=== PATIENT | female | born 1955 | race Caucasian/White ===

== ENCOUNTER 2016-08-12 08:13 | Outpatient (CLI) | payer BC | END 2016-08-12 08:14 | disposition home or self-care (01) | DX: R74.8 Abnormal levels of other serum enzymes (principal) ==

== ENCOUNTER 2016-08-12 08:15 | Outpatient (CLI) | payer BC | END 2016-08-12 08:16 | disposition home or self-care (01) | DX: M81.0 Age-related osteoporosis without current pathological fracture (principal) ==

== ENCOUNTER 2017-11-11 15:45 | Outpatient (CLI) | payer BC ==
--- NOTE | 2017-11-12 11:53 | Mammography Report ---
DIGITAL SCREENING MAMMOGRAM: 11/11/2017 CLINICAL INDICATION: A 62-year-old with history of benign excisional biopsy for screening. COMPARISON: 04/2016, 12/2014, 11/2013, 08/2012, 03/2011, 03/2010. TECHNIQUE: Routine CC and MLO projections were obtained of the breasts. FINDINGS: The breasts demonstrate scattered fibroglandular densities bilaterally. Postoperative changes in the left upper outer central breast are stable. No suspicious masses, clustered microcalcifications, or regions of architectural distortion are identified. IMPRESSION: BENIGN FINDINGS. RECOMMENDATION: Routine annual screening unless otherwise clinically indicated. BIRADS CATEGORY 2 - BENIGN FINDINGS. STANDARD QUALIFYING STATEMENTS: 1. This examination was reviewed with the aid of Computer-Aided Detection (CAD). 2. A negative or benign imaging report should not delay biopsy if clinically suspicious findings are present. Consider surgical consultation if warranted. More than 5% of cancers are not identified by imaging. 3. Dense breasts may obscure an underlying neoplasm. TD: 11/12/2017 11:53
== END 2017-11-11 15:46 | disposition home or self-care (01) ==
LOC: DI.N 15:45
PROVIDERS: ATTEND Physician Assistant Medical
DX: Z12.31 Encounter for screening mammogram for malignant neoplasm of breast (principal)
CPT/HCPCS: 77067

== ENCOUNTER 2018-02-17 19:50 | Emergency (ER) | payer BC | END 2018-02-17 20:18 | disposition left against medical advice (07) | LOC: ED 19:50 | DX: Z53.21 Procedure and treatment not carried out due to patient leaving prior to being seen by health care provider (principal) ==

== ENCOUNTER 2018-02-18 02:22 | Emergency (ER) | payer BC ==
[2018-02-18 02:32] VITALS: BP 146/67
[2018-02-18 03:05] LABS: BASOPHILS % (AUTO) 0.2 %; EOSINOPHILS # (AUTO) 0.2 10^3/uL (0.0-0.7); HGB - HEMOGLOBIN 13.5 g/dL (12.0-16.0); LYMPHOCYTES # (AUTO) 0.3 10^3/uL (1.5-3.5); LYMPHOCYTES % (AUTO) 4.7 %; MEAN CORPUSCULAR HEMOGLOBIN 31.6 pg (27.0-31.0); MEAN CORPUSCULAR HGB CONC 33.8 g/dL (32.0-36.0); MEAN CORPUSCULAR VOLUME 93.5 fL (81.0-99.0); MEAN PLATELET VOLUME 7.8 fL (7.9-10.8); MONOCYTES # (AUTO) 0.5 10^3/uL (0.0-1.0); MONOCYTES % (AUTO) 6.6 %; NEUTROPHILS # (AUTO) 5.9 10^3/uL (1.5-6.6); NEUTROPHILS % (AUTO) 85.5 %; PLT - PLATELET COUNT 171 10^3/uL (130-450); RED BLOOD COUNT 4.28 10^6/uL (4.20-5.40); RED CELL DISTRIBUTION WIDTH 14.4 % (12.0-15.0); WHITE BLOOD COUNT 6.9 x10^3/uL (4.8-10.8)
[2018-02-18 03:09] LABS: INR 1.1 (0.8-1.2); PT - PROTHROMBIN TIME 11.9 secs (9.9-12.6)
[2018-02-18 03:14] LABS: ALBUMIN 4.7 g/dL (3.2-5.5); ALBUMIN/GLOBULIN RATIO 1.8 (1.0-2.2); BILIRUBIN,TOTAL 0.6 mg/dL (0.2-1.0); CALCIUM 9.5 mg/dL (8.5-10.3); TOTAL PROTEIN 7.3 g/dL (6.7-8.2)
[2018-02-18] MEDS ORDERED: predniSONE 20 MG TABLET PO STA (03:21)
[2018-02-18] MEDS ORDERED: hydrOXYzine PAMOATE 25 MG CAPSULE PO STA (03:21)
--- NOTE | 2018-02-18 03:34 | ED Physician Documentation ---
PD HPI SKIN - Stated complaint Stated Complaint: JAZMYNE LEG PAIN,JAZMYNE ARM RASH - Chief complaint Chief Complaint: Ext Problem - History obtained from History obtained from: Patient - History of Present Illness Timing - onset: How many days ago (2) Timing - details: Gradual onset, Still present Location: RUE, LUE, RLE, LLE Quality / character: Itchy, Painful Associated symptoms: No: Fever Contributing factors: No: Exposed to medication, Exposed to food, Exposed to soap / lotion Similar symptoms before: Has not had sx before Recently seen: Not recently seen - Additional information Additional information: Patient is a 62 year old female with a history of sjogren's syndrome who is presenting to the emergency department for redness of her legs and her arms. patient states that it was just on her legs yesterday and today it spread to her arms. Patient came earlier in the day but the wait was too long so she left. Patient states it is somewhat puritic and somewhat painful Review of Systems Ten Systems: 10 systems reviewed and negative Skin: reports: Rash PD PAST MEDICAL HISTORY - Past Medical History Past Medical History: Yes Cardiovascular: None Respiratory: None Endocrine/Autoimmune: HyPOthyroidism GI: None : None Psych: None Musculoskeletal: None Derm: None - Past Surgical History Past Surgical History: Yes General: Cholecystectomy, Appendectomy - Present Medications Home Medications: Ambulatory Orders Medication Instructions Recorded Confirmed Cholecalciferol (Vitamin D3) 1 tab PO DAILY 09/20/14 09/21/14 [Vitamin D-3] Estrogen,Con/M-Progest Acet 1 tab PO DAILY 09/20/14 09/21/14 [Prempro 0.3 mg-1.5 mg Tablet] Hydroxychloroquine [Plaquenil] 400 mg PO DAILY 09/20/14 09/21/14 Levothyroxine [Synthroid] 100 mcg PO DAILY 09/20/14 09/21/14 Aspirin [Aspir 81] 81 mg ORAL DAILY 09/21/14 09/21/14 Atenolol 50 mg ORAL DAILY 09/21/14 09/21/14 Pilocarpine HCl 5 mg ORAL TID 09/21/14 09/21/14 hydrOXYzine pamoate [Hydroxyzine 25 mg PO Q6HR PRN #20 capsule 02/18/18 Pamoate] predniSONE [Prednisone] 40 mg PO DAILY 5 Days tablet 02/18/18 - Allergies Allergies/Adverse Reactions: Allergies Allergy/AdvReac Type Severity Reaction Status Date / Time Sulfa (Sulfonamide Allergy Hives Verified 09/20/14 15:23 Antibiotics) - Social History Does the pt smoke?: No Smoking Status: Never smoker Does the pt drink ETOH?: No Does the pt have substance abuse?: No - Immunizations Immunizations are current?: Yes - POLST Patient has POLST: No PD ED PE NORMAL - Vitals Vital signs reviewed: Yes - General General: Alert and oriented X 3, No acute distress - HEENT HEENT: Atraumatic - Cardiac Cardiac: RRR - Respiratory Respiratory: No respiratory distress PD ED PE EXPANDED - Derm Derm: Rash (erythematous rash seems to be worse on exposed areas, no definitive borders ) SKin visual: 1 - rash 2 - rash 3 - rash 4 - rash 5 - rash Results - Vitals Vitals: Vital Signs - 24 hr 02/18/18 02:25 Temperature 36.6 C Heart Rate 74 Respiratory 16 Rate Blood Pressure 146/67 H O2 Saturation 100 Oxygen O2 Source Room air - Labs Labs: Laboratory Tests 02/18/18 02/18/18 02/18/18 02:55 02:55 02:55 WBC 6.9 RBC 4.28 Hgb 13.5 Hct 40.0 MCV 93.5 MCH 31.6 H MCHC 33.8 RDW 14.4 Plt Count 171 MPV 7.8 L Neut # (Auto) 5.9 Lymph # (Auto) 0.3 L [place] # (Auto) 0.5 Eos # (Auto) 0.2 Baso # (Auto) 0.0 Absolute Nucleated RBC 0.01 Nucleated RBC % 0.1 PT 11.9 INR 1.1 APTT 24.6 L Sodium 138 Potassium 4.0 Chloride 104 Carbon Dioxide 27 Anion Gap 7.0 BUN 16 Creatinine 1.0 Estimated GFR (MDRD) 56 L Glucose 109 H Calcium 9.5 Total Bilirubin 0.6 AST 28 ALT 26 Alkaline Phosphatase 77 Total Protein 7.3 Albumin 4.7 Globulin 2.6 Albumin/Globulin Ratio 1.8 Lipase 37 PD MEDICAL DECISION MAKING - ED course Complexity details: reviewed old records, reviewed results, re-evaluated patient , considered differential, d/w patient, d/w family ED course: Priscilla was seen and examined at bedside. patient was well appearing and in no distress. labs were drawn and within normal limits. Patient's symptoms were likely secondary to vasculitis. Patient was treated with hydroxyzine and prednisone. Patient was instructed to call her doctor tomorrow. Patient and felt comfortable with the plan and were stable for discharge with outpatient follow up. - Sepsis Event Vital Signs: Vital Signs - 24 hr 02/18/18 02:25 Temperature 36.6 C Heart Rate 74 Respiratory 16 Rate Blood Pressure 146/67 H O2 Saturation 100 Oxygen O2 Source Room air Departure - Departure Disposition: Home, Self Care Clinical Impression: Vasculitis Condition: Good Instructions: Sjgren Syndrome Follow-Up: Diann Worrell PA-C [Primary Care Provider] - Tomorrow Prescriptions: hydrOXYzine pamoate [Hydroxyzine Pamoate] 25 mg PO Q6HR PRN #20 capsule PRN Reason: Itching predniSONE [Prednisone] 40 mg PO DAILY 5 Days tablet Comments: Your diagnostics today were within normal limits. your symptoms were likely secondary to vasculitis which is likely due to the sjogren's syndrome. 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 you may return to the emergency department at any time for new, worsening or uncontrollable symptoms.
== END 2018-02-18 03:41 | disposition home or self-care (01) ==
LOC: ED 02:22
DX: I77.6 Arteritis, unspecified (principal); M35.00 Sjogren syndrome, unspecified
CPT/HCPCS: 36415; 80053; 83690; 85025; 85610; 85730; 99283; A9270; J7512

== ENCOUNTER 2018-09-25 07:55 | Outpatient (CLI) | payer BC ==
--- NOTE | 2018-09-25 10:17 | Ultrasound Report ---
Reason: CALF PAIN,BILATERAL Procedure Date: 09/25/2018 Accession Number: [id number] / [id number] Procedure: US - Duplex Ext Veins Bilateral CPT Code: FULL RESULT: EXAM: BILATERAL LOWER EXTREMITY VENOUS ULTRASOUND EXAM DATE: 09/25/2018 09:29 AM. CLINICAL HISTORY: Calf pain, bilateral. COMPARISON: None. TECHNIQUE: Real-time sonographic vascular imaging was performed by the tag and label cutter through the lower extremities utilizing both color-flow and Doppler spectral analysis. Multiple farm loan representative static images were saved for review. FINDINGS: Right: Common Femoral Vein (CFV): Normal. CFV-GSV Junction: Normal. Profunda Femoral Vein (PFV): Normal. Femoral Vein (FV) Prox: Normal. Femoral Vein (FV) Mid: Normal. Femoral Vein (FV) Dist: Normal. Popliteal Vein: Normal. Posterior Tibial Veins: Normal. Peroneal Veins: Normal. Left: Common Femoral Vein (CFV): Normal. CFV-GSV Junction: Normal. Profunda Femoral Vein (PFV): Normal. Femoral Vein (FV) Prox: Normal. Femoral Vein (FV) Mid: Normal. Femoral Vein (FV) Dist: Normal. Popliteal Vein: Normal. Posterior Tibial Veins: Normal. Peroneal Veins: Normal. Other: Please note that sensitivity of the examination is mildly limited by body habitus. IMPRESSION: No evidence for deep venous thrombosis bilaterally. RADIA The call report notification system was initiated by Dr. Renaldo Guevara at 10:15 AM on 09/25/2018. CRITICAL RESULT: The findings were discussed with Dr. Palmer on 09/25/2018 at 10:28 AM.
== END 2018-09-25 07:56 | disposition home or self-care (01) ==
LOC: DI 07:55
PROVIDERS: ATTEND Physician Assistant Medical
DX: M79.662 Pain in left lower leg (principal); M79.661 Pain in right lower leg
CPT/HCPCS: 93970

== ENCOUNTER 2018-12-18 15:31 | Outpatient (CLI) | payer BC ==
--- NOTE | 2018-12-18 16:48 | Mammography Report ---
Reason: SCREENING MAMMO Procedure Date: 12/18/2018 Accession Number: [id number] / [id number] Procedure: MGN - Screening Mammo Dig Bilat CPT Code: FULL RESULT: EXAM: Screening Mammo Dig Bilat DATE: 12/18/2018 4:01 PM CLINICAL HISTORY: Routine screening. No reported personal history or family history of breast cancer. History of benign left breast biopsy. TECHNIQUE: (B) - Bilateral CC and MLO views were obtained. COMPARISON: 11/11/2017 through 11/03/2013 PARENCHYMAL PATTERN: (D) - The breasts demonstrate heterogeneously dense fibroglandular parenchyma bilaterally. FINDINGS: Bilateral breasts: There are no suspicious masses, calcifications, or areas of distortion. Stable excisional biopsy changes upper outer left breast. IMPRESSION: Benign findings. BI-RADS category 2. RECOMMENDATION: (ANNUAL) - Recommend routine annual screening mammography. BI-RADS CATEGORY: (2) - Benign Findings. STANDARD QUALIFYING STATEMENTS: 1. This examination was not reviewed with the aid of Computer-Aided Detection (CAD). 2. A negative or benign imaging report should not preclude biopsy if clinically suspicious findings are present. 3. Dense breasts may obscure an underlying neoplasm. 4. This examination was reviewed without the aid of 3D breast imaging (tomosynthesis).
== END 2018-12-18 15:32 | disposition home or self-care (01) ==
LOC: DI.N 15:31
DX: Z12.31 Encounter for screening mammogram for malignant neoplasm of breast (principal)
CPT/HCPCS: 77067

== ENCOUNTER 2019-01-29 16:24 | Outpatient (CLI) | payer BC ==
--- NOTE | 2019-02-01 08:53 | XRAY Report ---
Reason: PAIN AND EDEMA LEFT FOOT X MONTHS Procedure Date: 01/29/2019 Accession Number: [id number] / [id number] Procedure: XR - Foot 3 View LT CPT Code: FULL RESULT: EXAM: LEFT FOOT RADIOGRAPHY EXAM DATE: 01/29/2019 04:43 PM. CLINICAL HISTORY: PAIN AND EDEMA LEFT FOOT X MONTHS. COMPARISON: None. TECHNIQUE: 3 views. FINDINGS: Bones: Achilles tendon and plantar heel spurs. No fractures or bone lesions. Joints: First MTP joint osteophytes, joint space narrowing, subchondral sclerosis. Soft Tissues: Soft tissue swelling. IMPRESSION: 1. First MTP DJD. 2. Heel spurs. RADIA
== END 2019-01-29 16:25 | disposition home or self-care (01) ==
LOC: DI 16:24
PROVIDERS: ATTEND Podiatrist
DX: M19.072 Primary osteoarthritis, left ankle and foot (principal); M77.32 Calcaneal spur, left foot

== ENCOUNTER 2019-04-06 08:00 | Outpatient (CLI) | payer BC ==
[2019-04-06 18:40] LABS: BILIRUBIN,URINE NEGATIVE (NEGATIVE); GLUCOSE, URINE (UA) NEGATIVE (NEGATIVE); KETONES,URINE (UA) NEGATIVE (NEGATIVE); LEUKOCYTE ESTERASE, URINE NEGATIVE (NEGATIVE); NITRITE,URINE NEGATIVE (NEGATIVE); OCCULT BLOOD,URINE NEGATIVE (NEGATIVE); PROTEIN,URINE NEGATIVE (NEGATIVE); UROBILINOGEN,URINE 0.2 (NORMAL) E.U./dL (NORMAL)
[2019-04-06 18:41] LABS: CLARITY,URINE CLEAR (CLEAR)
== END 2019-04-06 23:59 | disposition home or self-care (01) ==
LOC: LAB.WCP 08:00
PROVIDERS: ATTEND Physician Assistant Medical
DX: R82.998 Other abnormal findings in urine (principal)
CPT/HCPCS: 81001; 81003; 87086

== ENCOUNTER 2019-10-21 08:00 | Outpatient (CLI) | payer BC | END 2019-10-21 23:59 | disposition home or self-care (01) | LOC: LAB.R 08:00 | PROVIDERS: ATTEND Physician Assistant Medical | DX: R30.0 Dysuria (principal) | CPT/HCPCS: 87086 ==

== ENCOUNTER 2020-01-19 10:17 | Outpatient (CLI) | payer BC ==
--- NOTE | 2020-01-20 08:13 | Mammography Report ---
BILATERAL DIGITAL SCREENING MAMMOGRAM 3D/2D: 01/19/2020 CLINICAL: Routine screening. Comparison is made to exams dated: 12/18/2018 mammogram, 11/11/2017 mammogram, and 04/09/2016 mammogram - [facility]. There are scattered fibroglandular elements in both breasts. There are benign post operative findings in the left breast. No significant masses, calcifications, or other findings are seen in either breast. There has been no significant interval change. IMPRESSION: There is no mammographic evidence of malignancy. A 1 year screening mammogram is recommended. This exam was interpreted at Station ID: [id number]. NOTE: For mammograms, a report in lay terms will be sent to the patient. Approximately 15% of breast malignancies will not be visualized mammographically. In the management of a palpable breast mass, a negative mammogram must not discourage biopsy of a clinically suspicious lesion. Electronically Signed By: Surendra Vega M.D. aty/penrad:01/19/2020 12:06:41 ACR BI-RADS Category 2: Benign Finding(s) 3342F PARENCHYMAL PATTERN: (A) - The breast(s) demonstrate(s) scattered fibroglandular densities. BI-RADS CATEGORY: (2) - 2 RECOMMENDATION: (ANNUAL) - Recommend routine annual screening mammography. [id number] 1 year screening LATERALITY: (B)
== END 2020-01-19 10:18 | disposition home or self-care (01) ==
LOC: DI 10:17
DX: Z12.31 Encounter for screening mammogram for malignant neoplasm of breast (principal)
CPT/HCPCS: 77063; 77067

== ENCOUNTER 2020-01-19 10:18 | Outpatient (CLI) | payer BC ==
--- NOTE | 2020-01-19 11:49 | DEXA Report ---
Reason: POST MENOPAUSAL Procedure Date: 01/19/2020 Accession Number: [id number] / [id number] Procedure: DEX - Dexa Spine and/or Hip CPT Code: Final Report FULL RESULT: PROCEDURE: Dexa Spine and/or Hip INDICATIONS: POST MENOPAUSAL TECHNIQUE: Dual energy x-ray absorptiometry (DXA) was performed on a [employer] System. Regions measured are the AP Spine, femoral neck, and if needed forearm. COMPARISON: None. FINDINGS: Lumbar Spine: Bone Mineral Density 0.881 g/cm/cm,T score -2.5, Left Femoral Neck: Bone Mineral Density 0.694 g/cm/cm, T score -2.5, (T score greater or equal to -1.0: NORMAL) (T score from -1.1 to -2.4: OSTEOPENIA) (T score less than or equal to -2.5 to: OSTEOPOROSIS) Impression: Osteoporosis. Patients with diagnosis of osteoporosis or osteopenia should have regular bone mineral density assessment. For those eligible for Medicare, routine testing is allowed once every 2 years. Testing frequency can be increased for patients who have rapidly progressing disease or for those who are receiving medical therapy to restore bone mass. Reviewed by: Wilian Xie MD on 01/19/2020 11:48 AM PDT Approved by: Wilian Xie MD on 01/19/2020 11:48 AM PDT Station ID: [id number]
== END 2020-01-19 10:19 | disposition home or self-care (01) ==
LOC: DI 10:18
PROVIDERS: ATTEND Physician Assistant Medical
DX: M81.8 Other osteoporosis without current pathological fracture (principal)
CPT/HCPCS: 77080

== ENCOUNTER 2020-04-25 16:59 | Outpatient (CLI) | payer OTHER, BC ==
--- NOTE | 2020-04-26 13:06 | XRAY Report ---
PROCEDURE: Lumbar Spine 2 View INDICATIONS: BACK PAIN LUMBAR TECHNIQUE: 2 views of the lumbar spine were acquired. COMPARISON: None. FINDINGS: Bones: 5 [id number] vertebrae are present. There is grade IL5-S1 anterolisthesis. No vertebral body compression fractures. No suspicious bony lesions. Mild L1-L2, L2-L3, L3-L4, L4-L5 and L5-S1 d egenerative disc disease. Mild to moderate L4-L5 and L5-S1 facet arthropathy. Soft tissues: Overlying bowel gas pattern is normal. No suspicious soft tissue calcifications. Chol ecystectomy clips. IMPRESSION: 1. Multilevel degenerative disease. 2. Multilevel facet arthropathy. 3. Grade 1 L5-S1 degenerative spondylolisthesis. 4. No fracture. No acute osseous lesion. If there is continued clinical concern for pathology, then M RI should be considered for further evaluation. Reviewed by: Tammy Tidwell MD, PhD on 04/26/2020 1:05 PM PDT Approved by: Tammy Tidwell MD, PhD on 04/26/2020 1:05 PM PDT Station ID: [id number]
== END 2020-04-25 17:00 | disposition home or self-care (01) ==
LOC: DI 16:59
PROVIDERS: ATTEND Family Medicine
DX: M43.17 Spondylolisthesis, lumbosacral region (principal); M51.37 Other intervertebral disc degeneration, lumbosacral region
CPT/HCPCS: 72100

== ENCOUNTER 2020-08-10 06:20 | Day surgery (SDC) | payer BC ==
[2020-08-10] MEDS ORDERED: LACTATED RINGERS 1,000 ML IV ONE ×2 (06:48→08:15)
[2020-08-10] MEDS ORDERED: fentaNYL 250 MCG/5 ML VIAL ONE (08:00)
[2020-08-10] MEDS ORDERED: MIDAZOLAM 2 MG/2 ML VIAL ONE ×2 (08:00→08:07)
[2020-08-10 08:33] VITALS: BP 119/57
--- OUTSIDE RECORDS SUMMARY | 2020-08-16 00:58 | EXTERNAL MEDICAL SUMMARY RPT | Continuity of Care Document ---
:1955 Demographics Phone Unavailable Preferred Language Fijian Marital Status Unknown Sikh Affiliation Unknown Race Unknown Ethnic Group Unknown Author Organization [facility] Address [address] [place] [address] Phone Care Team Providers Name Role Phone PA-C Unavailable Unavailable Young Unavailable Unavailable Problems date description facility 2020-07-07 00:00:00 COMPREHENSIVE METABOLIC PANEL [facility] [place] [facility] 2020-07-07 00:00:00 CBC W/Diff/Plt [facility] [place] [facility] 2020-07-21 00:00:00 TSH WITH REFLEX TO FT4 [facility] [place] [facility] 2020-07-21 00:00:00 Osteoporosis, unspecified [facility] [place] [facility] 2020-07-21 00:00:00 [facility] current pathological [place] [facility] fracture 2020-07-21 00:00:00 [facility] [place] [facility] 2020-07-21 00:00:00 Tobacco use and exposure [facility] [place] [facility] 2020-07-21 00:00:00 [facility] [place] [facility] 2020-07-21 00:00:00 [facility] [place] [facility] 2020-07-21 00:00:00 [facility] [place] [facility] 2020-07-21 00:00:00 [facility] [place] [facility] 2020-07-21 00:00:00 Tobacco smoking status NHIS [facility] [place] [facility] 2020-07-21 00:00:00 [facility] score[facility] [place] [facility] Allergies date description facility NO KNOWN ENVIRONMENTAL ALLERGIES [facility]ENICILLINS [facility] Medications date description facility 2020-06-05 00:00:00 null [facility] [place] [facility] 2020-06-05 00:00:00 null [facility] [place] [facility] 2020-06-05 00:00:00 NA SULFATE-K [facility] [place] [facility] 2020-06-05 00:00:00 NA [facility]ULF[facility] [place] [facility] 2020-07-21 00:00:00 null [facility] [place] [facility] 2020-07-21 00:00:00 null [facility] [place] [facility] 2020-07-21 00:00:00 ALENDRONATE SODIUM [facility] [place] [facility] 2020-07-21 00:00:00 [facility]DRON[facility]IUM [facility] [place] [facility] Results test status date ordered by attending specimen luci e Calcium unknown 2020-07-13 unknown unknown unknown 00:00:00 Glucose unknown 2020-07-13 unknown unknown unknown 00:00:00 BUN unknown 2020-07-13 unknown unknown unknown 00:00:00 Protein_Total unknown 2020-07-13 unknown unknown unknown 00:00:00 Albumin unknown 2020-07-13 unknown unknown unknown 00:00:00 Bilirubin_Total unknown 2020-07-13 unknown unknown unknow n 00:00:00 Alkaline_Phosphatase unknown 2020-07-13 unknown unknown u nknown 00:00:00 AST_SGOT_ unknown 2020-07-13 unknown unknown unknown 00:00:00 Potassium unknown 2020-07-13 unknown unknown unknown 00:00:00 Sodium unknown 2020-07-13 unknown unknown unknown 00:00:00 Chloride unknown 2020-07-13 unknown unknown unknown 00:00:00 Creatinine unknown 2020-07-13 unknown unknown unknown 00:00:00 ALT_SGPT_ unknown 2020-07-13 unknown unknown unknown 00:00:00 Carbon_Dioxide_Total unknown 2020-07-13 unknown unknown u nknown 00:00:00 WBC unknown 2020-07-13 unknown unknown unknown 00:00:00 RBC unknown 2020-07-13 unknown unknown unknown 00:00:00 Hemoglobin unknown 2020-07-13 unknown unknown unknown 00:00:00 Hematocrit unknown 2020-07-13 unknown unknown unknown 00:00:00 BUN_Creatinine_Ratio unknown 2020-07-13 unknown unknown u nknown 00:00:00 Globulin_Total unknown 2020-07-13 unknown unknown unknown 00:00:00 A_G_Ratio unknown 2020-07-13 unknown unknown unknown 00:00:00 MCV unknown 2020-07-13 unknown unknown unknown 00:00:00 MCH unknown 2020-07-13 unknown unknown unknown 00:00:00 MCHC unknown 2020-07-13 unknown unknown unknown 00:00:00 Neutrophils unknown 2020-07-13 unknown unknown unknown 00:00:00 Lymphs unknown 2020-07-13 unknown unknown unknown 00:00:00 Monocytes unknown 2020-07-13 unknown unknown unknown 00:00:00 Eos unknown 2020-07-13 unknown unknown unknown 00:00:00 Basos unknown 2020-07-13 unknown unknown unknown 00:00:00 Platelets unknown 2020-07-13 unknown unknown unknown 00:00:00 Lymphs_Absolute_ unknown 2020-07-13 unknown unknown unkno wn 00:00:00 Monocytes_Absolute_ unknown 2020-07-13 unknown unknown un known 00:00:00 mean_corpuscular_hem unknown 2020-07-13 unknown unknown u nknown oglobin_concentration 00:00:00 _RBC red_blood_cell_distr unknown 2020-07-13 unknown unknown u nknown ibution_width 00:00:00 mean_corpuscular_hem unknown 2020-07-13 unknown unknown u nknown oglobin_RBC 00:00:00 RDW unknown 2020-07-13 unknown unknown unknown 00:00:00 calcium_serum unknown 2020-07-13 unknown unknown unknown 00:00:00 chloride_serum unknown 2020-07-13 unknown unknown unknown 00:00:00 albumin_globulin_rat unknown 2020-07-13 unknown unknown u nknown io_serum 00:00:00 sodium_serum unknown 2020-07-13 unknown unknown unknown 00:00:00 Alanine_aminotransfe unknown 2020-07-13 unknown unknown u nknown rase_Enzymatic_activi 00:00:00 ty_volume_in_Serum_or _Plasma Albumin_Mass_volume_ unknown 2020-07-13 unknown unknown u nknown in_Serum_or_Plasma 00:00:00 Albumin_Globulin_Mas unknown 2020-07-13 unknown unknown u nknown s_Ratio_in_Serum_or_P 00:00:00 lasma Alkaline_phosphatase unknown 2020-07-13 unknown unknown u nknown _Enzymatic_activity_v 00:00:00 olume_in_Blood creatinine_serum unknown 2020-07-13 unknown unknown unkno wn 00:00:00 Aspartate_aminotrans unknown 2020-07-13 unknown unknown u nknown ferase_Enzymatic_acti 00:00:00 vity_volume_in_Serum_ or_Plasma Bilirubin.total_Mass unknown 2020-07-13 unknown unknown u nknown _volume_in_Serum_or_P 00:00:00 lasma albumin_serum unknown 2020-07-13 unknown unknown unknown 00:00:00 Calcium_Moles_volume unknown 2020-07-13 unknown unknown u nknown _in_Serum_or_Plasma 00:00:00 carbon_dioxide_serum unknown 2020-07-13 unknown unknown u nknown _total 00:00:00 Chloride_Moles_volum unknown 2020-07-13 unknown unknown u nknown e_in_Serum_or_Plasma 00:00:00 Creatinine_Mass_volu unknown 2020-07-13 unknown unknown u nknown me_in_Serum_or_Plasma 00:00:00 Globulin_Mass_volume unknown 2020-07-13 unknown unknown u nknown _in_Serum 00:00:00 Glucose_Mass_volume_ unknown 2020-07-13 unknown unknown u nknown in_Serum_or_Plasma 00:00:00 monocytes_as_percent unknown 2020-07-13 unknown unknown u nknown _of_blood_leukocytes 00:00:00 basophils_as_percent unknown 2020-07-13 unknown unknown u nknown _of_blood_leukocytes 00:00:00 urea_nitrogen_creati unknown 2020-07-13 unknown unknown u nknown nine_ratio_serum 00:00:00 Potassium_Moles_volu unknown 2020-07-13 unknown unknown u nknown me_in_Serum_or_Plasma 00:00:00 Protein_Mass_volume_ unknown 2020-07-13 unknown unknown u nknown in_Serum_or_Plasma 00:00:00 Sodium_Moles_volume_ unknown 2020-07-13 unknown unknown u nknown in_Serum_or_Plasma 00:00:00 alkaline_phosphatase unknown 2020-07-13 unknown unknown u nknown _serum 00:00:00 lymphocyte_count_blo unknown 2020-07-13 unknown unknown u nknown od_automated 00:00:00 monocyte_count_blood unknown 2020-07-13 unknown unknown u nknown _automated 00:00:00 globulins_serum_tota unknown 2020-07-13 unknown unknown u nknown l 00:00:00 Urea_nitrogen_Mass_v unknown 2020-07-13 unknown unknown u nknown olume_in_Serum_or_Pla 00:00:00 sma Urea_nitrogen_Creati unknown 2020-07-13 unknown unknown u nknown nine_Mass_Ratio_in_Se 00:00:00 rum_or_Plasma mean_corpuscular_vol unknown 2020-07-13 unknown unknown u nknown ume_RBC 00:00:00 neutrophils_as_perce unknown 2020-07-13 unknown unknown u nknown nt_of_blood_leukocyte 00:00:00 s lymphocytes_as_perce unknown 2020-07-13 unknown unknown u nknown nt_of_blood_leukocyte 00:00:00 s potassium_serum unknown 2020-07-13 unknown unknown unknow n 00:00:00 blood_glucose unknown 2020-07-13 unknown unknown unknown 00:00:00 protein_total_serum unknown 2020-07-13 unknown unknown un known 00:00:00 aspartate_aminotrans unknown 2020-07-13 unknown unknown u nknown ferase_SGOT_serum 00:00:00 carbon_dioxide_serum unknown 2020-07-13 unknown unknown u nknown _total 00:00:00 alanine_aminotransfe unknown 2020-07-13 unknown unknown u nknown rase_SGPT_serum 00:00:00 eosinophils_as_perce unknown 2020-07-13 unknown unknown u nknown nt_of_blood_leukocyte 00:00:00 s bilirubin_serum_tota unknown 2020-07-13 unknown unknown u nknown l 00:00:00 Hematocrit_Volume_Fr unknown 2020-07-13 unknown unknown u nknown action_of_Blood_by_Au 00:00:00 tomated_count Monocytes_100_leukoc unknown 2020-07-13 unknown unknown u nknown ytes_in_Blood_by_Auto 00:00:00 mated_count hematocrit_blood unknown 2020-07-13 unknown unknown unkno wn 00:00:00 hemoglobin_blood unknown 2020-07-13 unknown unknown unkno wn 00:00:00 platelet_count unknown 2020-07-13 unknown unknown unknown 00:00:00 Leukocytes_volume_in unknown 2020-07-13 unknown unknown u nknown _Blood_by_Automated_c 00:00:00 ount erythrocyte_RBC_coun unknown 2020-07-13 unknown unknown u nknown t 00:00:00 leukocyte_count_bloo unknown 2020-07-13 unknown unknown u nknown d 00:00:00 Basophils_100_leukoc unknown 2020-07-13 unknown unknown u nknown ytes_in_Blood_by_Manu 00:00:00 al_count Eosinophils_100_leuk unknown 2020-07-13 unknown unknown u nknown ocytes_in_Blood_by_Au 00:00:00 tomated_count Hemoglobin_Mass_volu unknown 2020-07-13 unknown unknown u nknown me_in_Blood 00:00:00 Lymphocytes_volume_i unknown 2020-07-13 unknown unknown u nknown n_Blood_by_Automated_ 00:00:00 count Lymphocytes_100_leuk unknown 2020-07-13 unknown unknown u nknown ocytes_in_Blood_by_Au 00:00:00 tomated_count Monocytes_volume_in_ unknown 2020-07-13 unknown unknown u nknown Blood_by_Automated_co 00:00:00 unt Neutrophils_100_leuk unknown 2020-07-13 unknown unknown u nknown ocytes_in_Blood_by_Au 00:00:00 tomated_count Platelets_volume_in_ unknown 2020-07-13 unknown unknown u nknown Blood_by_Automated_co 00:00:00 unt MCH_Entitic_mass_by_ unknown 2020-07-13 unknown unknown u nknown Automated_count 00:00:00 MCHC_Mass_volume_by_ unknown 2020-07-13 unknown unknown u nknown Automated_count 00:00:00 MCV_Entitic_volume_b unknown 2020-07-13 unknown unknown u nknown y_Automated_count 00:00:00 Erythrocyte_distribu unknown 2020-07-13 unknown unknown u nknown tion_width_Ratio_by_A 00:00:00 utomated_count Erythrocytes_volume_ unknown 2020-07-13 unknown unknown u nknown in_Blood_by_Automated 00:00:00 _count urea_nitrogen_blood unknown 2020-07-13 unknown unknown un known 00:00:00 colonoscopy unknown 2020-08-15 unknown unknown unknown 00:00:00 Colonoscopy_procedur unknown 2020-08-15 unknown unknown u nknown e_ 00:00:00 facility observation status value reference units lab abnor mal line range code notes [facility] Calcium unknown 9.4 unknown mg/dL _001 unkno wn unknown [facility] 016 [place] [facility] Glucose unknown 80 unknown mg/dL _001 unkno wn unknown [facility] 032 [place] [facility] BUN unknown 18 unknown mg/dL _001 unknow n unknown [facility] 040 [place] [facility] Protein_Tota unknown 6.7 unknown g/dL _001 unknown unknown Primary [facility] l 073 [place] [facility] Albumin unknown 4.5 unknown g/dL _001 unkno wn unknown [facility] 081 [place] [facility] Bilirubin_To unknown 0.7 unknown mg/dL _001 unknown unknown Primary Care [place] 099 [place] [facility] Alkaline_Pho unknown 83 unknown U/L _001 unknown unknown Primary Care sphatase 107 [place] [facility] AST_SGOT_ unknown 26 unknown U/L _001 unk nown unknown Primary Care 123 [place] [facility] Potassium unknown 4.2 unknown mmol/L _001 unk nown unknown [facility] 180 [place] [facility] Sodium unknown 138 unknown mmol/L _001 unknow n unknown [facility] 198 [place] [facility] Chloride unknown 101 unknown mmol/L _001 unkn own unknown Primary Care 206 [place] [facility] Creatinine unknown 0.84 unknown mg/dL _001 un known unknown [facility] 370 [place] [facility] ALT_SGPT_ unknown 17 unknown U/L _001 unk nown unknown Primary [facility] 545 [place] [facility] Carbon_Dioxi unknown 26 unknown mmol/L _001 unknown unknown [facility] de_Total 578 [place] [facility] WBC unknown 4.2 unknown _005 unknow n unknown [facility] X10E3/UL 025 [place] [facility] RBC unknown 4.33 unknown _005 unknow n unknown [facility] X10E6/UL 033 [place] [facility] Hemoglobin unknown 13.0 unknown g/dL _005 un known unknown [facility] 041 [place] [facility] Hematocrit unknown 39.1 unknown % _005 un known unknown [facility] 058 [place] [facility] BUN_Creatini unknown 21 unknown _011 unknown unknown [facility] ne_Ratio 577 [place] [facility] Globulin_Tot unknown 2.2 unknown g/dL _012 unknown unknown Primary Care al 039 [place] [facility] A_G_Ratio unknown 2.0 unknown _012 unk nown unknown [facility] 047 [place] [facility] MCV unknown 90 unknown fL _015 unknow n unknown [facility] 065 [place] [facility] MCH unknown 30.0 unknown pg _015 unknow n unknown [facility] 073 [place] [facility] MCHC unknown 33.2 unknown G/DL _015 unknow n unknown [facility] 081 [place] [facility] Neutrophils unknown 75 unknown % _015 u nknown unknown [facility] 107 [place] [facility] Lymphs unknown 13 unknown % _015 unknow n unknown [facility] 123 [place] [facility] Monocytes unknown 10 unknown % _015 unk nown unknown [facility] 131 [place] [facility] Eos unknown 2 unknown % _015 unknow n unknown [facility] 149 [place] [facility] Basos unknown 0 unknown % _015 unknow n unknown [facility] 156 [place] [facility] Platelets unknown 191 unknown _015 unk nown unknown [facility] X10E3/UL 172 [place] [facility] Lymphs_Absol unknown 0.5 unknown _015 unknown unknown Primary [facility] ute_ X10E3/UL 917 [place] [facility] Monocytes_Ab unknown 0.4 unknown _015 unknown unknown [facility] solute_ X10E3/UL 925 [place] [facility] mean_corpusc unknown 33.2 unknown G/DL _102 unknown unknown [facility] ular_hemoglob 9 [place] [facility] in_concentrat ion_RBC [facility] red_blood_ce unknown 12.1 unknown % _103 unknown unknown [facility] ll_distributi 0 [place] [facility] on_width [facility] mean_corpusc unknown 30.0 unknown pg _103 unknown unknown [facility] ular_hemoglob 1 [place] [facility] in_RBC [facility] RDW unknown 12.1 unknown % _105 unknow n unknown [facility] 007 [place] [facility] calcium_seru unknown 9.4 unknown mg/dL _11 unknown unknown [facility] m [place] [facility] chloride_ser unknown 101 unknown mmol/L _13 unknown unknown [facility] um [place] [facility] albumin_glob unknown 2.0 unknown _146 unknown unknown [facility] ulin_ratio_se [place] [facility] rum [facility] sodium_serum unknown 138 unknown mmol/L _159 unknown unknown [facility] [place] [facility] Alanine_amin unknown 17 unknown U/L _174 unknown unknown [facility] otransferase_ 2-6 [place] [facility] Enzymatic_act ivity_volume_ in_Serum_or_P lasma [facility] Albumin_Mass unknown 4.5 unknown g/dL _175 unknown unknown [facility] _volume_in_Se 1-7 [place] [facility] rum_or_Plasma [facility] Albumin_Glob unknown 2.0 unknown _175 unknown unknown [facility] ulin_Mass_Rat 9-0 [place] [facility] io_in_Serum_o r_Plasma [facility] Alkaline_pho unknown 83 unknown U/L _178 unknown unknown [facility] sphatase_Enzy 3-0 [place] [facility] matic_activit y_volume_in_B lood [facility] creatinine_s unknown 0.84 unknown mg/dL _18 unknown unknown [facility] jakob [place] [facility] Aspartate_am unknown 26 unknown U/L _192 unknown unknown [facility] inotransferas 0-8 [place] [facility] e_Enzymatic_a ctivity_volum e_in_Serum_or _Plasma [facility] Bilirubin.to unknown 0.7 unknown mg/dL _197 unknown unknown [facility] tal_Mass_volu 5-2 [place] [facility] me_in_Serum_o r_Plasma [facility] albumin_seru unknown 4.5 unknown g/dL _2 unknown unknown [facility] m [place] [facility] Calcium_Mole unknown 9.4 unknown mg/dL _200 unknown unknown [facility] s_volume_in_S 0-8 [place] [facility] erum_or_Plasm a [facility] carbon_dioxi unknown 26 unknown mmol/L _202 unknown unknown [facility] de_serum_tota 8-9 [place] [facility] l [facility] Chloride_Mol unknown 101 unknown mmol/L _207 unknown unknown [facility] es_volume_in_ 5-0 [place] [facility] Serum_or_Plas ma [facility] Creatinine_M unknown 0.84 unknown mg/dL _216 unknown unknown [facility] ass_volume_in 0-0 [place] [facility] _Serum_or_Pla sma [facility] Globulin_Mas unknown 2.2 unknown g/dL _233 unknown unknown [facility] s_volume_in_S 6-6 [place] [facility] jakob [facility] Glucose_Mass unknown 80 unknown mg/dL _234 unknown unknown [facility] _volume_in_Se 5-7 [place] [facility] rum_or_Plasma [facility] monocytes_as unknown 10 unknown % _242 unknown unknown [facility] _percent_of_b 1 [place] [facility] lood_leukocyt es [facility] basophils_as unknown 0 unknown % _242 unknown unknown [facility] _percent_of_b 6 [place] [facility] lood_leukocyt es [facility] urea_nitroge unknown 21 unknown _246 unknown unknown [facility] n_creatinine_ 2 [place] [facility] ratio_serum [facility] Potassium_Mo unknown 4.2 unknown mmol/L _282 unknown unknown [facility] les_volume_in 3-3 [place] [facility] _Serum_or_Pla [facility] Protein_Mass unknown 6.7 unknown g/dL _288 unknown unknown [facility] _volume_in_Se 5-2 [place] [facility] rum_or_Plasma [facility] Sodium_Moles unknown 138 unknown mmol/L _295 unknown unknown [facility] _volume_in_Se 1-2 [place] [facility] rum_or_Plasma [facility] alkaline_pho unknown 83 unknown U/L _3 unknown unknown [facility] sphatase_seru [place] [facility] m [facility] lymphocyte_c unknown 0.5 unknown _307 unknown unknown [facility] ount_blood_au X10E3/UL 4 [place] [facility] tomated [facility] monocyte_cou unknown 0.4 unknown _307 unknown unknown [facility] nt_blood_auto X10E3/UL 6 [place] [facility] mated [facility] globulins_se unknown 2.2 unknown g/dL _307 unknown unknown [facility] rum_total 8 [place] [facility] Urea_nitroge unknown 18 unknown mg/dL _309 unknown unknown [facility] n_Mass_volume 4-0 [place] [facility] _in_Serum_or_ Plasma [facility] Urea_nitroge unknown 21 unknown _309 unknown unknown [facility] n_Creatinine_ 7-3 [place] [facility] Mass_Ratio_in _Serum_or_Pla [facility] mean_corpusc unknown 90 unknown fL _315 unknown unknown [facility] ular_volume_R [place] [facility] BC [facility] neutrophils_ unknown 75 unknown % _316 unknown unknown [facility] as_percent_of [place] [facility] _blood_leukoc ytes [facility] lymphocytes_ unknown 13 unknown % _317 unknown unknown [facility] as_percent_of [place] [facility] _blood_leukoc ytes [facility] potassium_se unknown 4.2 unknown mmol/L _35 unknown unknown [facility] rum [place] [facility] blood_glucos unknown 80 unknown mg/dL _356 unknown unknown [facility] e 5 [place] [facility] protein_tota unknown 6.7 unknown g/dL _36 unknown unknown [facility] l_serum [place] [facility] aspartate_am [facility] 26 unknown U/L _39 unknown unknown [facility] inotransferas [place] [facility] e_SGOT_serum [facility] carbon_dioxi unknown 26 unknown mmol/L _396 unknown unknown [facility] de_serum_tota 2 [place] [facility] l [facility] alanine_amin unknown 17 unknown U/L _40 unknown unknown [facility] otransferase_ [facility] [facility] SGPT_serum [facility] eosinophils_ unknown 2 unknown % _417 unknown unknown [facility] as_percent_of 0 [place] [facility] _blood_leukoc ytes [facility] bilirubin_se unknown 0.7 unknown mg/dL _43 unknown unknown [facility] rum_total [place] [facility] Hematocrit_V unknown 39.1 unknown % _454 unknown unknown [facility] olume_Fractio 4-3 [place] [facility] n_of_Blood_by _Automated_co unt [facility] Monocytes_10 unknown 10 unknown % _590 unknown unknown [facility] 0_leukocytes_ 5-5 [place] [facility] in_Blood_by_A utomated_coun t [facility] hematocrit_b unknown 39.1 unknown % _64 unknown unknown [facility] lood [place] [facility] hemoglobin_b unknown 13.0 unknown g/dL _65 unknown unknown [facility] lood [place] [facility] platelet_cou unknown 191 unknown _66 unknown unknown [facility] nt X10E3/UL [place] [facility] Leukocytes_v unknown 4.2 unknown _669 unknown unknown [facility] olume_in_Bloo X10E3/UL 0-2 [place] [facility] d_by_Automate d_count [facility] erythrocyte_ unknown 4.33 unknown _67 unknown unknown [facility] RBC_count X10E6/UL [place] [facility] leukocyte_co unknown 4.2 unknown _68 unknown unknown [facility] unt_blood X10E3/UL [place] [facility] Basophils_10 unknown 0 unknown % _707 unknown unknown [facility] 0_leukocytes_ -0 [place] [facility] in_Blood_by_M anual_count [facility] Eosinophils_ unknown 2 unknown % _713 unknown unknown [facility] 100_leukocyte -8 [place] [facility] s_in_Blood_by _Automated_co unt [facility] Hemoglobin_M unknown 13.0 unknown g/dL _718 unknown unknown [facility] ass_volume_in -7 [place] [facility] _Blood [facility] Lymphocytes_ unknown 0.5 unknown _731 unknown unknown [facility] volume_in_Blo X10E3/UL -0 [place] [facility] od_by_Automat ed_count [facility] Lymphocytes_ unknown 13 unknown % _736 unknown unknown [facility] 100_leukocyte -9 [place] [facility] s_in_Blood_by _Automated_co unt [facility] Monocytes_vo unknown 0.4 unknown _742 unknown unknown [facility] lume_in_Blood X10E3/UL -7 [place] [facility] _by_Automated _count [facility] Neutrophils_ unknown 75 unknown % _770 unknown unknown [facility] 100_leukocyte -8 [place] [facility] s_in_Blood_by _Automated_co unt [facility] Platelets_vo unknown 191 unknown _777 unknown unknown [facility] lume_in_Blood X10E3/UL -3 [place] [facility] _by_Automated _count [facility] MCH_Entitic_ unknown 30.0 unknown pg _785 unknown unknown [facility] mass_by_Autom -6 [place] [facility] ated_count [facility] MCHC_Mass_vo unknown 33.2 unknown G/DL _786 unknown unknown [facility] lume_by_Autom -4 [place] [facility] ated_count [facility] MCV_Entitic_ unknown 90 unknown fL _787 unknown unknown [facility] volume_by_Aut -2 [place] [facility] omated_count [facility] Erythrocyte_ unknown 12.1 unknown % _788 unknown unknown [facility] distribution_ -0 [place] [facility] width_Ratio_b y_Automated_c [facility]unt [facility] Erythrocytes unknown 4.33 unknown _789 unknown unknown [facility] _volume_in_Bl X10E6/UL -8 [place] [facility] ood_by_Automa ted_count [facility] urea_nitroge unknown 18 unknown mg/dL _9 unknown unknown [facility] n_blood [place] [facility] colon[facility] unknown repeat unknown _232 u nknown unknown Primary Care in 5 3 [place] [facility] years [facility] Colonoscopy_ unknown repeat unknown _737 unknown unknown [facility] Care procedure_ in 5 [id number] [place] [facility] years Social History date description facility 2020-07-21 00:00:00 [facility] [place] [facility] Social History date description facility 2020-07-21 00:00:00 [facility] [place] [facility] date description facility [id number]
== END 2020-08-10 06:21 | disposition home or self-care (01) ==
LOC: SDS 06:20
PROVIDERS: ATTEND Surgery
PROC: 0DBK8ZZ Excision of Ascending Colon, Via Natural or Artificial Opening Endoscopic (ICD-10-PCS; principal; 2020-08-10 07:30)
DX: Z12.11 Encounter for screening for malignant neoplasm of colon (principal); K57.30 Diverticulosis of large intestine without perforation or abscess without bleeding; K64.8 Other hemorrhoids; K63.89 Other specified diseases of intestine; M35.00 Sjogren syndrome, unspecified; I10 Essential (primary) hypertension; E78.5 Hyperlipidemia, unspecified; E03.9 Hypothyroidism, unspecified
CPT/HCPCS: 45380; J3010; J7120; 88305

== ENCOUNTER 2020-11-24 16:24 | Outpatient (CLI) | payer BC ==
--- NOTE | 2020-11-24 16:54 | XRAY Report ---
PROCEDURE: Thoracic Spine 2 View INDICATIONS: THORACIC BACK PAIN TECHNIQUE: 3 views of the thoracic spine were acquired. COMPARISON: X-ray lumbar spine 04/25/2020. FINDINGS: Bones: No fractures or dislocations. No suspicious bony lesions. 12 pairs of ribs are noted, and a ppear intact where visualized. Multilevel degenerative disc space narrowing is present. There is a c ompression deformity of approximately 60% at T11. No priors of this region are available for comparis on. Soft tissues: No paravertebral stripe thickening. IMPRESSION: Compression deformity of indeterminate age at T11. Reviewed by: Estela Roberts MD on 11/24/2020 4:53 PM PDT Approved by: Estela Roberts MD on 11/24/2020 4:53 PM PDT Station ID: [id number]
--- NOTE | 2020-11-24 16:54 | XRAY Report ---
PROCEDURE: Lumbar Spine 2 View INDICATIONS: LUMBAR BACK PAIN TECHNIQUE: 3 views of the lumbar spine were acquired. COMPARISON: None. FINDINGS: Bones: 5 [id number] vertebrae are present. There is normal bony alignment. No vertebral body compression fractures. No suspicious bony lesions. Multilevel endplate osteophyte formation and fac et hypertrophy throughout the lumbar spine. Soft tissues: Overlying bowel gas pattern is normal. No suspicious soft tissue calcifications. IMPRESSION: Generative disc and facet disease. No acute fracture. No osseous lesion. If symptoms and /or clinical suspicion for pathology continue, further assessment with repeat plain films, or advance d imaging (e.g., CT, MRI, or bone scan) is recommended for further assessment. Reviewed by: Suzi Jimenez MD on 11/24/2020 4:53 PM PDT Approved by: Suzi Jimenez MD on 11/24/2020 4:53 PM PDT Station ID: [id number]
== END 2020-11-24 16:25 | disposition home or self-care (01) ==
LOC: DI.N 16:24
PROVIDERS: ATTEND Internal Medicine
DX: M43.8X4 Other specified deforming dorsopathies, thoracic region (principal); M47.816 Spondylosis without myelopathy or radiculopathy, lumbar region; M51.36 Other intervertebral disc degeneration, lumbar region

== ENCOUNTER 2021-03-06 14:34 | Outpatient (CLI) | payer BC ==
--- NOTE | 2021-03-07 15:24 | Mammography Report ---
BILATERAL DIGITAL SCREENING MAMMOGRAM 3D/2D: 03/06/2021 CLINICAL: Routine screening. Comparison is made to exams dated: 01/19/2020 mammogram, 12/18/2018 mammogram, 11/11/2017 mammogram, 04/09/2016 mammogram, 12/02/2014 mammogram, and 11/03/2013 mammogram - Merged with [facility]. There a re scattered fibroglandular elements in both breasts. There are benign post operative findings in the left breast. No significant masses, calcifications, or other findings are seen in either breast. There has been no significant interval change. IMPRESSION: BENIGN There is no mammographic evidence of malignancy. A 1 year screening mammogram is recommended. This exam was interpreted at Station ID: [id number]. NOTE: For mammograms, a report in lay terms will be sent to the patient. Approximately 15% of breast malignancies will not be visualized mammographically. In the management of a palpable breast mass, a negative mammogram must not discourage biopsy of a clinically suspicious lesion. Electronically Signed By: Reggie Warren acr/penrad:03/06/2021 15:29:30 ACR BI-RADS Category 2: Benign Finding(s) 3342F PARENCHYMAL PATTERN: (A) - The breast(s) demonstrate(s) scattered fibroglandular densities. BI-RADS CATEGORY: (2) - 2 RECOMMENDATION: (ANNUAL) - Recommend routine annual screening mammography. [id number] 1 year screening LATERALITY: (B)
== END 2021-03-06 14:35 | disposition home or self-care (01) ==
LOC: DI 14:34
DX: Z12.31 Encounter for screening mammogram for malignant neoplasm of breast (principal)

== ENCOUNTER 2021-03-19 20:21 | Observation (INO) | payer BC, MEDICARE ==
--- NOTE | 2021-03-19 21:32 | ED Physician Documentation ---
History of Present Illness - Stated complaint Stated Complaint: LEFT ARM ISSUE, LIGHTHEADED,WOBBELY ON FEET - Chief complaint Chief Complaint: General - History obtained from History obtained from: Patient - Additonal information Additional information: 65-year-old woman with history of high blood pressure, Sjogren's disease, hypothyroidism, presents with multiple presyncopal episodes intermittent over the past 4 days, worse with position changes, as well as 4 days of left arm tingling originating at the fingertips and going all the way up the shoulder. Denies chest pain or shortness of breath. 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 Also threw up this morning, nonbloody nonbilious. Denies nausea at present or abdominal pain. Did have a Covid test at [place] this morning that was negative. Review of Systems Ten Systems: 10 systems reviewed and negative GI: reports: Nausea, Vomiting. denies: Abdominal Pain, Diarrhea Neurologic: reports: Other (tingling/heaviness in arm) PD PAST MEDICAL HISTORY - Past Medical History Cardiovascular: None Respiratory: None Endocrine/Autoimmune: HyPOthyroidism GI: None : None Psych: None Musculoskeletal: None Derm: None - Past Surgical History Past Surgical History: Yes General: Cholecystectomy, Appendectomy - Present Medications Home Medications: Ambulatory Orders Medication Instructions Recorded Confirmed Cholecalciferol (Vitamin D3) 1 tab PO DAILY 09/20/14 09/21/14 [Vitamin D-3] Hydroxychloroquine [Plaquenil] 400 mg PO DAILY 09/20/14 09/21/14 Levothyroxine [Synthroid] 100 mcg PO DAILY 09/20/14 09/21/14 Aspirin [Aspir 81] 81 mg ORAL DAILY 09/21/14 09/21/14 Atenolol 50 mg ORAL DAILY 09/21/14 09/21/14 hydrOXYzine pamoate [Hydroxyzine 25 mg PO Q6HR PRN #20 capsule 02/18/18 Pamoate] - Allergies Allergies/Adverse Reactions: Allergies Allergy/AdvReac Type Severity Reaction Status Date / Time Sulfa (Sulfonamide Allergy Hives Verified 03/19/21 20:27 Antibiotics) - Social History Does the pt smoke?: No Smoking Status: Never smoker Does the pt drink ETOH?: No Does the pt have substance abuse?: No - Immunizations Immunizations are current?: Yes - POLST Patient has POLST: No PD ED PE NORMAL - Vitals Vital signs reviewed: Yes - General General: Alert and oriented X 3, No acute distress, Well developed/nourished - HEENT HEENT: Atraumatic, PERRL, EOMI - Neck Neck: Supple, no meningeal sign - Cardiac Cardiac: RRR - Respiratory Respiratory: No respiratory distress, Clear bilaterally - Abdomen Abdomen: Non tender, Non distended - Derm Derm: Normal color, Warm and dry - Neuro Neuro: Alert and oriented X 3 - Psych Psych: Normal mood, Normal affect Results - Vitals Vitals: Vital Signs - 24 hr 03/19/21 03/19/21 03/19/21 20:27 21:29 22:31 Temperature 36.5 C Heart Rate 80 66 Heart Rate [ 77 Sitting] Heart Rate [ 75 Standing] Heart Rate [ 75 Supine] Respiratory 16 24 Rate Blood Pressure 173/77 H 148/72 H Blood Pressure 182/87 H [Sitting] Blood Pressure 181/91 H [Standing] Blood Pressure 168/78 H [Supine] O2 Saturation 99 96 Oxygen O2 Source Room air - EKG (time done) 2132 Rate: Rate (enter#) (71) Rhythm: NSR [place]: Normal Intervals: Normal RI QRS: Normal Ischemia: Normal ST segments - Labs Labs: Laboratory Tests 03/19/21 03/19/21 03/19/21 21:39 21:39 21:39 WBC 6.3 RBC 4.23 Hgb 12.9 Hct 38.7 MCV 91.5 MCH 30.5 MCHC 33.3 RDW 12.7 Plt Count 185 MPV 9.1 Neut # (Auto) 5.1 Lymph # (Auto) 0.6 L [place] # (Auto) 0.5 Eos # (Auto) 0.1 Baso # (Auto) 0.0 Absolute Nucleated RBC 0.00 Nucleated RBC % 0.0 Sodium 140 Potassium 3.8 Chloride 105 Carbon Dioxide 26 Anion Gap 9.0 BUN 18 Creatinine 0.9 Estimated GFR (MDRD) 63 L Glucose 118 H Calcium 9.1 Total Bilirubin 0.5 AST 22 ALT 19 Alkaline Phosphatase 59 Troponin I High Sens 6.0 Total Protein 7.0 Albumin 4.5 Globulin 2.5 Albumin/Globulin Ratio 1.8 Lipase 41 PD MEDICAL DECISION MAKING - ED course ED course: 65-year-old woman presents with multiple episodes of presyncope as well as elevated blood pressure and left Arm tingling. Initial work-up in the emergency department negative, however patient has not had an echocardiogram recently therefore we will admit to observation for syncope protocol. Departure - Departure Disposition: ED Place in Observation Clinical Impression: Pre-syncope Condition: Stable
[2021-03-19 21:43] LABS: BASOPHILS % (AUTO) 0.3 %; EOSINOPHILS # (AUTO) 0.1 10^3/uL (0.0-0.7); EOSINOPHILS % (AUTO) 0.8 %; HCT - HEMATOCRIT 38.7 % (37.0-47.0); HGB - HEMOGLOBIN 12.9 g/dL (12.0-16.0); LYMPHOCYTES # (AUTO) 0.6 10^3/uL (1.5-3.5); LYMPHOCYTES % (AUTO) 9.8 %; MEAN CORPUSCULAR HEMOGLOBIN 30.5 pg (27.0-31.0); MEAN CORPUSCULAR HGB CONC 33.3 g/dL (32.0-36.0); MEAN CORPUSCULAR VOLUME 91.5 fL (81.0-99.0); MEAN PLATELET VOLUME 9.1 fL (7.9-10.8); MONOCYTES # (AUTO) 0.5 10^3/uL (0.0-1.0); MONOCYTES % (AUTO) 8.5 %; NEUTROPHILS # (AUTO) 5.1 10^3/uL (1.5-6.6); NEUTROPHILS % (AUTO) 80.4 %; PLT - PLATELET COUNT 185 10^3/uL (130-450); RED BLOOD COUNT 4.23 10^6/uL (4.20-5.40); RED CELL DISTRIBUTION WIDTH 12.7 % (12.0-15.0); WHITE BLOOD COUNT 6.3 x10^3/uL (4.8-10.8)
[2021-03-19 22:13] LABS: ALBUMIN 4.5 g/dL (3.2-5.5); ALBUMIN/GLOBULIN RATIO 1.8 (1.0-2.2); BILIRUBIN,TOTAL 0.5 mg/dL (0.2-1.0); CALCIUM 9.1 mg/dL (8.5-10.3); CREATININE 0.9 mg/dL (0.4-1.0); POTASSIUM 3.8 mmol/L (3.5-5.0)
[2021-03-20] MEDS ORDERED: SODIUM CHLORIDE FLUSH 0.9% 10 ML SYRINGE IVP PRN (00:08)
--- NOTE | 2021-03-20 00:14 | HISTORY & PHYSICAL EXAMINATION ---
Chief Complaint - Chief Complaint Chief Complaint: presyncope, left arm tingling History of Present Illness - Admitted From Admitted From:: [facility] ED - History Obtained From Records Reviewed: yes History obtained from: patient - History of Present Illness HPI Comment/Other: Patient is a 65-year-old female with medical history significant for Sjogren's syndrome, hypothyroidism, hypertension and osteopenia who presented to the ED with complaint of lightheadedness/dizziness. Her symptoms have been going on intermittently for 4 days. She finally came in at the behest of her family members to be evaluated. It is not associated with positioning. She reports an episode of nausea and vomiting yesterday. She denies chest pain, dyspnea, abdominal pain, fever or chills. On a separate note she complains of tingling in her left arm from the elbow distally. She describes undergoing what sounds like kyphoplasty at [facility] 1 month ago. Her work-up in the ED included an EKG, troponin and orthostatic vitals which were largely unremarkable. Her labs were also unremarkable. She was presented for admission for further work-up to include a 2D echocardiogram. History - Past Medical History Cardiovascular: reports: Hypertension Respiratory: reports: None Endocrine/Autoimmune: reports: HyPOthyroidism, Other (Sjorgren's Syndrome) GI: reports: None : reports: None Psych: reports: None Musculoskeletal: reports: Osteopenia Derm: reports: None MRSA Hx?: No - Past Surgical History General: reports: Cholecystectomy, Appendectomy Ortho: reports: Other (kyphopasty) HEENT: reports: Tonsil/Adenoidectomy, Other (ear surgery, unspecified) - Family & Social History Family History Comment/Other: Her mother, father and 1 sister had lung disease consistent with smoking. She also has a couple of siblings who are diabetic. Living arrangement: At home Living Situation: With spouse/s.o. Social History Notes: She does not use tobacco products, alcohol or recreational substances. - POLST Patient has POLST: No POLST Status: Full Code Meds/Allgy - Home Medications Home Medications: Ambulatory Orders Medication Instructions Recorded Confirmed Cholecalciferol (Vitamin D3) 1 tab PO DAILY 09/20/14 09/21/14 [Vitamin D-3] Hydroxychloroquine [Plaquenil] 400 mg PO DAILY 09/20/14 09/21/14 Levothyroxine [Synthroid] 100 mcg PO DAILY 09/20/14 09/21/14 Aspirin [Aspir 81] 81 mg ORAL DAILY 09/21/14 09/21/14 Atenolol 50 mg ORAL DAILY 09/21/14 09/21/14 hydrOXYzine pamoate [Hydroxyzine 25 mg PO Q6HR PRN #20 capsule 02/18/18 Pamoate] - Allergies Allergies/Adverse Reactions: Allergies Allergy/AdvReac Type Severity Reaction Status Date / Time Sulfa (Sulfonamide Allergy Hives Verified 03/19/21 20:27 Antibiotics) Review of Systems - Constitutional Constitutional: denies: Fatigue, Fever, Chills - Eyes Eyes: denies: Pain - Ears, Nose & Throat Ears, Nose & Throat: denies: Ear pain - Cardiovascular Cariovascular: reports: Lightheadedness. denies: Palpitations, Chest pain, Edema, Syncope, Exertional dyspnea - Respiratory Respiratory: denies: Cough, Sputum production, Wheezing, SOB at rest, SOB with exertion - Gastrointestinal Gastrointestinal: reports: Nausea, Vomiting. denies: Abdominal pain, Abdominal distention, Constipation, Diarrhea, Reflux/heartburn - Genitourinary Genitourinary: denies: Dysuria, Frequency, Urgency, Hematuria - Musculoskeletal Musculoskeletal: denies: Muscle pain, Back pain, Muscle aches - Integumentary Integumentary: denies: Rash, Pruritis, Lesions - Neurological Neurological: denies: General weakness, Focal weakness, Headache - Psychiatric Psychiatric: denies: Depression, Anxiety - Endocrine Endocrine: denies: Polyuria, Polydypsia - Hematologic/Lymphatic Hematologic/Lymphatic: denies: Anemia, Bruising, Petechiae Prior Level of Functionality: Patient is independent of activities of daily living Exam - Vital Signs Vital Signs: Vital Signs x48h Temp Pulse Pulse Pulse Pulse Resp BP 03/20/21 00:00 36.5 C 68 20 142/76 H 03/19/21 22:31 66 24 148/72 H 03/19/21 21:29 77 75 75 03/19/21 20:27 36.5 C 80 16 173/77 H BP BP BP Pulse Ox 03/20/21 00:00 98 03/19/21 22:31 96 03/19/21 21:29 182/87 H 181/91 H 168/78 H 03/19/21 20:27 99 - Physical Exam General Appearance: positive: No acute distress, Alert Eyes Bilateral: positive: PERRL, EOMI ENT: positive: No signs of dehydration Neck: positive: No JVD, Trachea midline Respiratory: positive: Chest non-tender, No respiratory distress, Breath sounds nml. negative: Wheezes, Rales, Rhonchi Cardiovascular: positive: Regular rate & rhythm, No murmur Abdomen: positive: Non-tender, Nml bowel sounds, No distention. negative: Guarding, Rebound Back: positive: Nml inspection Skin: positive: Color nml, No rash, Warm, Dry Extremities: positive: Non-tender, Full ROM, Nml appearance, No pedal edema Neurologic/Psychiatric: positive: Oriented x3, Mood/affect nml Conclusion/Plan - Problem List (1) Pre-syncope Conclusion/Plan: EKG unremarkable. Trop neg. Will trend X1 more Orthostatic vitals were negative Cardiac cause is less likely. However, will monitor on telemetry overnight and obtain a 2D echo in the morning Patient's combination of symptoms of lightheadedness/dizziness, nausea/vomiting and diarrhea are likely prodromal symptoms of a potential viral infection. (2) Tingling of left upper extremity Conclusion/Plan: Patient recently underwent what seems to be a kyphoplasty about [address] [facility]. Recommended that she follow-up with orthopedics. She may need an MRI to rule out nerve impingement. (3) Hypothyroidism Conclusion/Plan: Check TSH Continue synthroid 100mcg po daily (4) Hx of Sjogren's disease Conclusion/Plan: On plaquenil (5) Hypertension Conclusion/Plan: On atenolol - Lab Results Fish Bones: 03/19/21 21:39 03/19/21 21:39 Core Measures - Anticipated LOS I expect patient to be DC'd or transferred within 96 hours.: Yes - DVT/VTE - Prophylaxis VTE/DVT Device ordered at admit?: Yes
[2021-03-20] MEDS: SODIUM CHLORIDE FLUSH 0.9% 10 ML SYRINGE IVP SCH ×2 (02:02→12:03)
[2021-03-20] MEDS ORDERED: LEVOTHYROXINE 100 MCG TABLET PO SCH (07:00)
--- NOTE | 2021-03-20 09:00 | XRAY Report ---
PROCEDURE: Chest 1 View X-Ray INDICATIONS: Chest pain TECHNIQUE: One view of the chest was acquired. COMPARISON: None. FINDINGS: Surgical changes and devices: None. Lungs and pleura: No pleural effusions or pneumothorax. Lungs are clear. Mediastinum: Mediastinal contours appear normal. Heart size is normal. Bones and chest wall: No suspicious bony lesions. Overlying soft tissues appear unremarkable. IMPRESSION: No acute cardiopulmonary process demonstrated radiographically. No significant change from preliminar y report. Reviewed by: Jeremy Kaiser MD on 03/20/2021 8:58 AM PDT Approved by: Jeremy Kaiser MD on 03/20/2021 8:58 AM PDT Station ID: [id number]
--- NOTE | 2021-03-20 10:32 | PHARMACY PROGRESS NOTE ---
- Best Possible Medication History Admit Date and Time: 03/20/21 0008 Processed by: Pharmacy Medication History completed: Yes Patient Interview: Pt unable to participate Secondary Source(s): Physician records, Pharmacy records, Insurance records As the person ultimately responsible for medication therapy, providers are able to order a medication from an existing home medication list in [facility] via the "Reconcile Routine" prior to Confirmation of that medication by learning support assistant. Such practice is discouraged except when the physician, in their clinical judgment, deems that a medical need exists for a medication without regard to previous use.
--- NOTE | 2021-03-20 11:32 | Discharge Plan ---
Discharge Plan Problem Reviewed?: Yes Disposition: Home, Self Care Condition: Stable Diet: Regular Activity Restrictions: Activity as Tolerated Shower Restrictions: No Driving Restrictions: No Health Concerns: You presented to our emergency room with complaints of lightheaded and dizzy feelings for about 4 days. It was also associated with an episode of nausea and vomiting, and you felt like your arm was tingling from the elbow down. Your fear was that of a stroke. EKG was unremarkable. Your only risk factor for stroke is that of high blood pressure. Your symptoms have completely resolved. Your vital signs are stayed stable. 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 An Echocardiogram which is an ultrasound of your heart was done as well as an MRI of the head was ordered. Echocardiogram was normal. You do not have any holes in her heart nor did you have any valvular heart disease that would cause this. Other causes of this would be possible neurologic disorder and your MRI shows you to have chronic inflammatory changes of the right mastoid. You said that you had previous surgery on that ear before so you were not surprised. It also showed some spots in your lung that we call "white matter disease". That is an indirect reference to multiple sclerosis which I do not think you have. However I would recommend that you get an opinion with neurology or with your primary care provider to see if you need to do anything else. Plan of Treatment: Please followup with your primary care provider as to the other causes of dizziness you may have. Care Goals: To get a diagnosis so as to reduce anxiety Assessment: Patient understands workup and will follow thru No Smoking: If you smoke, Please STOP! Call for help. Follow-up with: Diann Worrell PA-C [Primary Care Provider] -
[2021-03-20] MEDS ORDERED: ACETAMINOPHEN 325 MG TABLET PO PRN (11:57)
--- NOTE | 2021-03-20 16:05 | DISCHARGE SUMMARY ---
"Discharge Summary Admit Date: 03/20/21 Discharge Date: 03/20/21 Discharging Provider: Shakila Martell MD Primary Care Provider: Jose Rocha MD Code Status: Attempt Resuscitation Condition at Discharge: Stable Discharge Disposition: 01 Home, Self Care - DIAGNOSES Discharge Diagnoses with Status of Each Condition: 1. Vertigo 2. Paresthesia of skin 3. Hypothyroidism 4. Sjogren's syndrome 5. Essential hypertension - HPI History of Present Illness: And physical which was dictated less than 12 hours after admission. - CONSULTS | PROCEDURES Procedures: Chest x-ray without acute cardiopulmonary process. MRI IAC Echocardiogram had mild concentric left ventricular hypertrophy. Impaired relaxation consistent with grade 1 diastolic dysfunction. Right ventricle normal in size and function. RVSP at rest was 32 mmHg. Moderate to severe increase in left atrial volume index. This would lead to increased risk of atrial fibrillation but the patient was not in atrial fibrillation during her stay. No evidence of aortic stenosis. - HOSPITAL COURSE Hospital Course: The patient's dizziness and paresthesias resolved within an hour or so of being in the emergency room. Due to concern for possible cardiac cause of dizziness she was placed on telemetry and she was without any arrhythmias for the duration of her stay. Work-up was completed with MRI, echocardiogram. Both of these are preliminary studies at discharge and should be reviewed by her primary care provider. TSH is 5.78. Troponins were within normal range. At discharge temperature is 36.9. Blood pressure 152/64. Respirations 18. 97% on room air. She is a 5 foot 7 inch female who weighs 94.5 kg. She appears fatigued. But no acute distress. Speech is lucid. No cranial nerve deficits. Neck is supple. She does not have nystagmus. Lungs are clear to auscultation and percussion. PMI normally placed. Regular rate and rhythm. The abdomen is benign. Extremities without edema. Neurologically cranial nerves are normal, strength testing is normal, cerebellar exam is normal. At this time the differential diagnosis for her vertigo includes vestibular abnormality, anxiety, etc. She should follow-up with her primary care provider if any further symptoms occur. - ALLERGIES Allergies/Adverse Reactions: Allergies Allergy/AdvReac Type Severity Reaction Status Date / Time Sulfa (Sulfonamide Allergy Hives Verified 03/19/21 20:27 Antibiotics) - MEDICATIONS Home Medications: Ambulatory Orders Medication Instructions Recorded Confirmed Cholecalciferol (Vitamin D3) 2,000 unit PO DAILY 09/20/14 03/20/21 [Vitamin D3] Hydroxychloroquine [Plaquenil] 400 mg PO DAILY 09/20/14 03/20/21 Aspirin [Aspir 81] 81 mg PO DAILY 09/21/14 03/20/21 Alendronate [Fosamax] 70 mg PO Q7D 03/20/21 03/20/21 Levothyroxine [Synthroid] 112 mcg PO QDAC 03/20/21 03/20/21 Metoprolol Succinate [Toprol Xl] 50 mg PO DAILY 03/20/21 03/20/21 tiZANidine [Zanaflex] 4 mg PO TID PRN 03/20/21 03/20/21 - LABS Result Diagrams: 03/19/21 21:39 03/19/21 21:39"
[2021-03-20] MEDS ORDERED: GADOBUTROL 15 MMOL/15 ML VIAL ONE (16:06)
[2021-03-20] MEDS ORDERED: GADOBUTROL 15 MMOL/15 ML VIAL IVP ONE (18:01)
--- NOTE | 2021-03-20 18:08 | MRI Report ---
PROCEDURE: IACS W/WO INDICATIONS: VERTIGO CONTRAST: IV CONTRAST: Gadavist ml: 9 TECHNIQUE: Noncontrast sagittal T1 spin echo, axial FLAIR, axial gradient echo, axial diffusion and ADC through the brain. Axial thin-slice 3D CISS, coronal balanced GE, axial T1 spin echo with fat saturation thr ough the internal auditory canals. After the administration of contrast, thin slice axial and rashid l T1 spin echo with fat saturation through the internal auditory canals, and axial T1 spin echo with fat saturation through the brain. COMPARISON: No prior relevant MRI examinations are available for review at the time of this dictatio n. Correlation is made with CT of the internal auditory canals 04/03/2013 FINDINGS: Image quality: Motion artifact is noted. Images were repeated, with some improvement. Cerebellopontine angles: No cerebellopontine angle masses. Inner ear structures appear normally for med. No suspicious enhancement in the internal auditory canal or along the course of the 7th cranial nerve. CSF spaces: Ventricles are normal in size and shape. No extra-axial fluid collections. Basal ciste rns are patent. Brain: No intracranial bleeds or mass effects. Brain parenchymal volume loss is seen. Scattered foci of T2-weighted hyperintensity can be seen, which are primarily within the periventricular and deep w erik matter, yet they can also be seen involving the juxtacortical white matter. These lesions do not enhance. No abnormal intracranial enhancement. Diffusion weighted images demonstrate no acute ische pa insults. Brainstem appears normal. Normal intravascular flow voids are present. Skull and face: Multiple cysts are seen involving the right parotid gland. No significant abnormal en hancement can be seen. This process measures at least 4.5 cm. Calvarial marrow signal is normal. Orb its appear normal. Incidental note is made of bilateral lens replacements. Sinuses: No significant paranasal sinus abnormality can be seen. There is moderate right mastoid air cell fluid. No abnormal left mastoid air cell fluid can be seen. IMPRESSION: No masses or abnormal enhancement can be seen involving the internal auditory canals or the cerebellopontine angle cisterns. Moderate right mastoid air cell fluid can be seen, which appear similar to 2013. Please consider mast oiditis. Abnormal white matter lesions are seen. In a patient of this age, these are statistically most likely related to chronic small vessel ischemic change. However, please consider a demyelinating process (i ncluding multiple sclerosis) given the juxtacortical lesions. Multiple nonenhancing cysts can be seen involving the right parotid gland. Please consider further wo rkup with an ENT referral and a dedicated CT scan. Reviewed by: Pablo Plasencia MD on 03/20/2021 5:07 PM MARY ELLEN Approved by: Pablo Plasencia MD on 03/20/2021 5:07 PM MARY ELLEN Station ID: [id number]
[2021-03-20 19:37] VITALS: BP 140/66
== END 2021-03-20 19:37 | disposition home or self-care (01) ==
LOC: ED 20:21 → MS2 03-20 00:08
PROVIDERS: ADMIT Internal Medicine; ATTEND Specialist
DX: R42 Dizziness and giddiness (principal); R20.2 Paresthesia of skin; K11.6 Mucocele of salivary gland; H70.11 Chronic mastoiditis, right ear; E03.9 Hypothyroidism, unspecified; M35.00 Sjogren syndrome, unspecified; I11.9 Hypertensive heart disease without heart failure; M85.80 Other specified disorders of bone density and structure, unspecified site; Z20.822 Contact with and (suspected) exposure to COVID-19; Z79.82 Long term (current) use of aspirin; Z79.899 Other long term (current) drug therapy
CPT/HCPCS: 36415; 70543; 71045; 80053; 83690; 84443; 84484; 85025; 93005; 93306; 99284; 99285; A9270; A9585; G0378; 0202U

== ENCOUNTER 2021-07-10 08:00 | Outpatient (CLI) | payer BC, MEDICARE ==
[2021-07-11 09:25] LABS: BILIRUBIN,URINE NEGATIVE (NEGATIVE); GLUCOSE, URINE (UA) NEGATIVE (NEGATIVE); KETONES,URINE (UA) NEGATIVE (NEGATIVE); LEUKOCYTE ESTERASE, URINE SMALL (NEGATIVE); NITRITE,URINE NEGATIVE (NEGATIVE); OCCULT BLOOD,URINE NEGATIVE (NEGATIVE); PROTEIN,URINE NEGATIVE (NEGATIVE); UROBILINOGEN,URINE 0.2 (NORMAL) E.U./dL (NORMAL)
[2021-07-11 09:27] LABS: CLARITY,URINE CLEAR (CLEAR)
[2021-07-11 10:02] LABS: RBC,URINE None Seen /HPF (0-5); WBC CLUMPS,URINE NONE SEEN
[2021-07-11 10:03] LABS: BACTERIA,URINE None Seen /HPF (None Seen); EPITHELIAL CELLS,UR None Seen /HPF (<= Few); SQUAMOUS EPITHELIAL CELL,UR FEW Squamous (<= Few)
== END 2021-07-10 23:59 | disposition home or self-care (01) ==
LOC: LAB.WCP 08:00
PROVIDERS: ATTEND Physician Assistant Medical
DX: R30.0 Dysuria (principal)
CPT/HCPCS: 81001; 87086

== ENCOUNTER 2021-09-03 15:34 | Outpatient (CLI) | payer BC, MEDICARE ==
--- NOTE | 2021-09-03 16:23 | XRAY Report ---
PROCEDURE: Foot 3 View RT INDICATIONS: R FOOT PX TECHNIQUE: 3 views of the foot were acquired. COMPARISON: None FINDINGS: Bones: No fractures or dislocations. No suspicious bony lesions. Soft tissues: No tibiotalar joint effusion. Achilles tendon appears normal. IMPRESSION: No acute fracture. No osseous lesion. If symptoms and/or clinical suspicion for pathology continue, f urther assessment with repeat plain films, or advanced imaging (e.g., CT, MRI, or bone scan) is recom mended for further assessment. Reviewed by: Suzi Jimenez MD on 09/03/2021 4:22 PM PST Approved by: Suzi Jimenez MD on 09/03/2021 4:22 PM PST Station ID: [id number]
== END 2021-09-03 23:59 | disposition home or self-care (01) ==
LOC: DI.N 15:34
PROVIDERS: ATTEND Physician Assistant Medical
DX: M79.671 Pain in right foot (principal)

== ENCOUNTER 2021-10-02 15:43 | Outpatient (CLI) | payer BC, MEDICARE ==
[2021-10-02 18:21] LABS: ALBUMIN 4.4 g/dL (3.2-5.5); ALBUMIN/GLOBULIN RATIO 1.7 (1.0-2.2); BILIRUBIN,TOTAL 0.6 mg/dL (0.2-1.0); CALCIUM 9.4 mg/dL (8.5-10.3); CREATININE 0.9 mg/dL (0.4-1.0); POTASSIUM 4.2 mmol/L (3.5-5.0)
[2021-10-02 18:24] LABS: BASOPHILS % (AUTO) 0.3 %; EOSINOPHILS # (AUTO) 0.1 10^3/uL (0.0-0.7); EOSINOPHILS % (AUTO) 1.1 %; HCT - HEMATOCRIT 36.8 % (37.0-47.0); HGB - HEMOGLOBIN 12.2 g/dL (12.0-16.0); LYMPHOCYTES # (AUTO) 0.7 10^3/uL (1.5-3.5); LYMPHOCYTES % (AUTO) 11.8 %; MEAN CORPUSCULAR HEMOGLOBIN 29.9 pg (27.0-31.0); MEAN CORPUSCULAR HGB CONC 33.2 g/dL (32.0-36.0); MEAN CORPUSCULAR VOLUME 90.2 fL (81.0-99.0); MEAN PLATELET VOLUME 10.8 fL (7.9-10.8); MONOCYTES # (AUTO) 0.6 10^3/uL (0.0-1.0); MONOCYTES % (AUTO) 9.7 %; NEUTROPHILS # (AUTO) 4.8 10^3/uL (1.5-6.6); NEUTROPHILS % (AUTO) 76.9 %; PLT - PLATELET COUNT 172 10^3/uL (130-450); RED BLOOD COUNT 4.08 10^6/uL (4.20-5.40); RED CELL DISTRIBUTION WIDTH 12.5 % (12.0-15.0); WHITE BLOOD COUNT 6.3 x10^3/uL (4.8-10.8)
== END 2021-10-02 15:44 | disposition home or self-care (01) ==
LOC: LAB.N 15:43
PROVIDERS: ATTEND Physician Assistant
DX: R10.31 Right lower quadrant pain (principal)
CPT/HCPCS: 36415; 80053; 85025

== ENCOUNTER 2021-10-03 20:34 | Outpatient (CLI) | payer BC, MEDICARE ==
--- NOTE | 2021-10-04 09:42 | Ultrasound Report ---
PROCEDURE: Pelvic Limited or F/U INDICATIONS: RLQ ABD PAIN TECHNIQUE: Real-time transabdominal scanning was performed of the pelvic soft tissues, with image documentation. COMPARISON: None. FINDINGS: SOFT TISSUES: No fascial defect to suggest hernia. No solid mass is appreciated. OTHER: None. IMPRESSION: No significant abnormality. Reviewed by: Jj Araujo MD on 10/04/2021 9:40 AM [facility] Approved by: Jj Araujo MD on 10/04/2021 9:40 AM [facility] Station ID: [id number]
== END 2021-10-03 20:35 | disposition home or self-care (01) ==
LOC: DI 20:34
PROVIDERS: ATTEND Physician Assistant
DX: R10.31 Right lower quadrant pain (principal)

== ENCOUNTER 2021-10-07 08:13 | Outpatient (CLI) | payer BC, MEDICARE ==
--- NOTE | 2021-10-07 10:12 | Ultrasound Report ---
PROCEDURE: Abdomen Limited INDICATIONS: ABN PAIN, R LOWER QUAD TECHNIQUE: Real-time focused scanning was performed of the abdomen, with image documentation. COMPARISON: 08/12/2016 FINDINGS: Gallbladder is surgically absent. No dilated ducts. Common bile duct is 4 mm. Visualized p ortions of the pancreas are unremarkable. Liver has a normal echo pattern. The kidney is normal in size with no hydronephrosis. IMPRESSION: Remote cholecystectomy. Otherwise unremarkable right upper quadrant ultrasound. Reviewed by: Pérez Horan MD on 10/07/2021 9:11 AM [facility] Approved by: Pérez Horan MD on 10/07/2021 9:11 AM [facility] Station ID: [id number]
== END 2021-10-07 08:14 | disposition home or self-care (01) ==
LOC: DI 08:13
PROVIDERS: ATTEND Physician Assistant
DX: R10.31 Right lower quadrant pain (principal); Z90.49 Acquired absence of other specified parts of digestive tract

== ENCOUNTER 2021-11-13 13:30 | Outpatient (CLI) | payer BC, MEDICARE | END 2021-11-13 23:59 | disposition home or self-care (01) | LOC: LAB.N 13:30 | PROVIDERS: ATTEND Nurse Practitioner | DX: R30.0 Dysuria (principal) | CPT/HCPCS: 87086 ==

== ENCOUNTER 2023-04-16 15:28 | Outpatient (CLI) | payer BC, MEDICARE ==
--- NOTE | 2023-04-17 11:21 | Mammography Report ---
BILATERAL DIGITAL SCREENING MAMMOGRAM 3D/2D: 04/16/2023 CLINICAL: Routine screening. Comparison is made to exams dated: 03/20/2022 mammogram, 03/06/2021 mammogram, 01/19/2020 mammogram, 12/02 mammogram, 11/11/2017 mammogram, and 04/09/2016 mammogram - [facility]. There are scattered areas of fibroglandular density in both breasts (category b / 25%-50% glandular t issue). There are benign post operative findings in the left breast. No significant masses, calcifications, or other findings are seen in either breast. There has been no significant interval change. IMPRESSION: BENIGN There is no mammographic evidence of malignancy. A 1 year screening mammogram is recommended. Based on the Tyrer Cuzick model (a risk assessment model) the patients lifetime risk is 6.1% and her 10 year risk is 3.4%. According to the ACR, ACS, and NCCN guidelines, an annual breast MRI exam faiza g with mammogram is recommended if the patients lifetime risk is 20% or greater. This exam was interpreted at Station ID: [id number]. NOTE: For mammograms, a report in lay terms will be sent to the patient. Approximately 15% of breast malignancies will not be visualized mammographically. In the management of a palpable breast mass, a negative mammogram must not discourage biopsy of a clinically suspicious lesion. Electronically Signed By: Reggie sierra/ramirez:04/17/2023 08:30:14 letter sent: No_Letter ACR BI-RADS Category 2: Benign Finding(s) 3342F PARENCHYMAL PATTERN: (A) - The breast(s) demonstrate(s) scattered fibroglandular densities. BI-RADS CATEGORY: (2) - 2 Mammogram [id number] 1 year screening LATERALITY: (B)
== END 2023-04-16 15:29 | disposition home or self-care (01) ==
LOC: DI.N 15:28
DX: Z12.31 Encounter for screening mammogram for malignant neoplasm of breast (principal)

== ENCOUNTER 2024-02-14 08:00 | Outpatient (CLI) | payer BC, MEDICARE | END 2024-02-14 23:59 | disposition home or self-care (01) | LOC: LAB.N 08:00 | PROVIDERS: ATTEND Physician Assistant | DX: N10 Acute pyelonephritis (principal) | CPT/HCPCS: 87086 ==